=== PATIENT | male | born 1970 | race Two or more races ===

== ENCOUNTER 2025-03-26 07:24 | Day surgery (SDC) | payer MEDICAID ==
[2025-03-26] VITALS (8 sets, daily range): BP systolic 95–137; BP diastolic 65–81; PULSE 68–80; RESP 12–16; TEMP 98.1; O2SAT 92–94
[~2025-03-26] VITALS: Ht 167.6 cm; Wt 102.1 kg
[~2025-03-26 07:24] MED LIST: ARIP2TAB PO; ASPI81CH74 PO; ATOR20TA50 PO; BUPR-346 PO; BUPR75TA96 PO; GABA-1250 PO; HYDR-3682 PO; HYDR1TAB97 PO; IBUP-1456 PO; LOSA-534 PO; NITR0.4S29 SL; SERT-289 PO; [UNRECOGNIZED DRUG - CODE] PO
[2025-03-26] MEDS ORDERED: IODIXANOL 320MG/ML 100ML BTL IV ONE (09:45)
[2025-03-26] MEDS ORDERED: VERAPAMIL 2.5MG/ML INJ 2ML VIAL IV ONE (09:52)
[2025-03-26] MEDS ORDERED: HEPARIN SODIUM (PORCINE) 5000 UNITS/ML 1ML VIAL ONE (09:52)
[2025-03-26] MEDS ORDERED: fentaNYL CITRATE 100 MCG/2 ML VL ONE (09:52)
[2025-03-26] MEDS ORDERED: MIDAZOLAM HCL 2MG/2ML 2ml VIAL (1mg/ml) ONE (09:53)
[2025-03-26] MEDS ORDERED: LIDOCAINE 2%HCL (LOCAL ANESTH.) INJ 20ML MDV ONE (09:53)
--- NOTE | 2025-03-26 10:54 | DVHOP2 ---
Operative Report Procedures performed: Left heart catheterization and bilateral coronary angiogram Moderate sedation Diagnosis: Nonobstructive coronary artery disease LVEF of 65% Increased LVEDP (19 mm Hg) Cardiac suggestions for management: Optimized medical therapy Lifestyle and risk factor modifications Findings: LVEF: 65% There was no transaortic valve pressure gradient Left main: Left main was coming off the left sinus of Valsalva. It was free of disease. LAD: LAD was coming off the left main. First diagonal was a medium-sized vessel with mild diffuse disease. Second diagonal was a large caliber vessel with 60% ostial disease and [id number] diffuse disease. Third diagonal was a small caliber vessel. LAD itself throughout its course revealed mild diffuse disease. Ramus intermedius: Ramus intermedius was a large caliber/branching vessel which came off the left main. It had mild diffuse disease throughout its course and branches. LCX: LCX was a medium-sized vessel which came off left main. OM1 and OM2 were medium-sized vessels. LCX throughout its course and branches revealed mild disease. RCA: RCA was coming off the right sinus of Valsalva. It was a dominant vessel and provided RPDA. There was a 50% focal mid RCA lesion. Other portions of RCA and branches revealed mild diffuse disease. Presentation: Patient is a 54-year-old gentleman who presented with chest discomfort to the office. Past medical history includes hypertension, active cigarette smoking, depression/anxiety, GERD, and SVT and family history of coronary artery disease. Echocardiogram of September 2024 revealed ejection fraction of 65-70%, normal atrial size. Mild mitral annular calcification. Aortic root was 4.0 cm. Ascending aorta was 3.8 cm. Right ventricular systolic pressure was less than 35 mm Hg. Nuclear stress test of September 2024 revealed normal perfusion. As the patient continued having chest pain which responded to sublingual nitroglycerin and with diagnosis of possible unstable angina, chest pain non-responding to medical therapy, the patient was sent for cardiac catheterization. Procedure: After obtaining informed consent, the patient was brought to track repair laborer. He was prepped and draped in sterile fashion. Right artery was used for access site. 1 mg of Versed and 50 mcg of fentanyl were used for moderate sedation. Under the guidance of ultrasound, the right radial artery was accessed. Using Seldinger technique, a six [place] slender sheath was inserted into the right radial sheath. A five [place] tiger four diagnostic catheter was used to perform left heart catheterization (obtaining pressures and performing left ventriculography) and bilateral coronary angiography. There was no indication for any transcatheter revascularization. Total bleeding was less than 5 mL. There was no dissection/hematoma/perforation. Patient tolerated the procedure with no complication. Right radial artery access site was managed by deploying a TR band. Fluoroscopy time: 2.9 minutes contrast: 45 mL of MeloipaGRECIA Mackenzie MD Mar 26, 2025 10:54
== END 2025-03-26 13:20 | disposition home or self-care (01) ==
LOC: CATH 07:24
PROVIDERS: ATTEND Internal Medicine Cardiovascular Disease
DX: I25.10 Atherosclerotic heart disease of native coronary artery without angina pectoris (principal); I10 Essential (primary) hypertension; I34.81 Nonrheumatic mitral (valve) annulus calcification; Z82.49 Family history of ischemic heart disease and other diseases of the circulatory system; Z87.891 Personal history of nicotine dependence
CPT/HCPCS: 93458; C1894; J1644; J2250; J3010; J7030; Q9967; 99152